=== PATIENT | female | born 1990 | race Caucasian/White ===

== ENCOUNTER 2019-01-02 10:30 | Emergency (ER) | payer OTHER ==
[~2019-01-02] VITALS: Ht 165.1 cm; Wt 44.5 kg
[2019-01-02 10:32] VITALS: BP 130/67
[2019-01-02] MEDS ORDERED: ZYRTEC10 MG PO (10:57)
[2019-01-02] MEDS ORDERED: PREDNISONE 20 M20 MG PO (10:57)
== END 2019-01-02 11:17 | disposition home or self-care (01) ==
LOC: ER 10:30
DX: S80.861A Insect bite (nonvenomous), right lower leg, initial encounter (principal); F17.210 Nicotine dependence, cigarettes, uncomplicated; Z98.890 Other specified postprocedural states; Z91.030 Bee allergy status; W57.XXXA Bitten or stung by nonvenomous insect and other nonvenomous arthropods, initial encounter; Y92.89 Other specified places as the place of occurrence of the external cause; Y93.89 Activity, other specified; Y99.8 Other external cause status

== ENCOUNTER 2019-01-11 15:03 | Emergency (ER) | payer OTHER ==
[~2019-01-11] VITALS: Ht 165.1 cm; Wt 45.4 kg
[~2019-01-11 15:03] MED LIST: PREDNISONE 20 M20 MG PO; ZYRTEC10 MG PO
[2019-01-11 15:37] LABS: URINE BILIRUBIN NEGATIVE (Negative); URINE BLOOD 2+ (Negative); URINE CLARITY CLOUDY; URINE COLOR YELLOW; URINE GLUCOSE-RANDOM* NEGATIVE (Negative); URINE KETONES 1+ (Negative); URINE LEUKOCYTES-REFLEX NEGATIVE (Negative); URINE PROTEIN (DIPSTICK) 1+ (Negative); URINE UROBILINOGEN 0.2 E.U./dl (0.2-1.0)
[2019-01-11 15:39] LABS: URINE NITRITE-REFLEX POSITIVE (Negative)
[2019-01-11 15:47] LABS: BACTERIA-REFLEX >30 Many /HPF (None Seen); CASTS None Seen /LPF (None Seen); CRYSTALS None Seen /LPF (None Seen); SQUAMOUS >10 Many /LPF (0-3); URINE RBC None Seen /HPF (0-2); URINE WBC-REFLEX 0-5 Rare /HPF (0-5)
[2019-01-11] MEDS ORDERED: NORCO 5-325 TA1 EAC1 PO (16:15)
[2019-01-11] MEDS ORDERED: KEFLEX500 M1 PO (16:15)
[2019-01-11] MEDS ORDERED: ZOFRAN ODT4 MG PO (16:15)
[2019-01-11 17:25] VITALS: BP 111/74
== END 2019-01-11 17:05 | disposition home or self-care (01) ==
LOC: ER 15:03
PROVIDERS: Nurse Practitioner Family
DX: N12 Tubulo-interstitial nephritis, not specified as acute or chronic (principal); F17.210 Nicotine dependence, cigarettes, uncomplicated; Z91.030 Bee allergy status; Z98.51 Tubal ligation status; Z98.890 Other specified postprocedural states